=== PATIENT | female | born 1990 | race Caucasian/White ===

== ENCOUNTER 2020-06-23 18:51 | Observation (INO) | payer SELFPAY ==
[~2020-06-23] VITALS: Ht 175.3 cm; Wt 66.1 kg
[2020-06-23 19:16] LABS: BASOPHILS ABSOLUTE AUTO 0.04 K/mm3 (0.00-0.23); BASOPHILS PERCENT AUTO 0 % (0-2); EOSINOPHILS ABSOLUTE AUTO 0.11 K/mm3 (0.00-0.68); EOSINOPHILS PERCENT AUTO 1 % (0-6); Hematocrit 39.7 % (33.0-51.0); Hemoglobin 13.5 g/dL (11.5-16.0); IMMATURE GRAN ABSOLUTE AUTO 0.03 K/mm3 (0.00-0.10); IMMATURE GRAN PERCENT AUTO 0 % (0-1); LYMPHOCYTES ABSOLUTE AUTO 2.42 K/mm3 (0.84-5.20); LYMPHOCYTES PERCENT AUTO 26 % (21-46); MONOCYTES ABSOLUTE AUTO 0.93 K/mm3 (0.16-1.47); MONOCYTES PERCENT AUTO 10 % (4-13); Mean Corpuscular HGB 29.7 pg (26.0-34.0); Mean Corpuscular Volume 87 fL (80-100); Mean Platelet Volume 9.7 fL (9.1-12.4); NEUTROPHILS ABSOLUTE AUTO 5.73 K/mm3 (1.96-9.15); NEUTROPHILS PERCENT AUTO 62 % (41-73); Platelet Count 374 K/mm3 (150-400); RDW Coefficient Variation 12.3 % (11.7-14.2); RDW Standard Deviation 39.4 fL (35.1-46.3); Red Blood Cell Count 4.54 M/mm3 (3.80-5.20); White Blood Cell Count 9.26 K/mm3 (4.00-11.30)
[2020-06-23 19:33] LABS: Alanine Aminotransfer (ALT/SGP 12 U/L (12-78); Albumin, Blood 3.5 g/dL (3.4-5.0); Albumin/Globulin Ratio 0.9 (0.8-1.8); Alk Phos 43 U/L (50-136); Anion Gap 8 mmol/L (6-16); Aspartate Aminotrans (AST/SGOT 11 U/L (12-37); Bilirubin, Total 0.5 mg/dL (0.1-1.0); Blood Urea Nitrogen 10 mg/dL (8-24); Bun/Creatinine Ratio 13.1 (12.0-20.0); CO2, Blood 23 mmol/L (21-32); Calcium, Blood 8.7 mg/dL (8.5-10.1); Chloride, Blood 107 mmol/L (98-108); Creatinine, Blood 0.77 mg/dL (0.40-1.00); Glomerular Filtration Rate >60 (60-); Glucose, Blood 90 mg/dL (70-99); Potassium, Blood 3.8 mmol/L (3.5-5.5); Sodium, Blood 138 mmol/L (136-145); Total Protein, Blood 7.5 g/dL (6.4-8.2)
[2020-06-23 19:51] LABS: Source, Urine Clean Catch
[2020-06-23 20:13] LABS: Appearance, Urine Hazy (Clear); Bilirubin, Urine Neg (Neg); Blood, Urine 1+ (Neg); Color, Urine Yellow (P-Yellow); Glucose Qualitative, Urine Neg (Neg); Ketones, Urine 1+ (Neg); Leukocyte Esterase, Urine 1+ (Neg); Nitrite, Urine Neg (Neg); Protein, Urine 3+ (Neg); Urobilinogen, Urine NORM (Normal)
[2020-06-23 20:16] LABS: Amorphous Light (0-Heavy); Bacteria Mod /hpf; Mucus Light (0-Heavy); Red Blood Cells, Urine 0-2 /hpf (0-2); Squamous Epithelial Cells Few /hpf (Few); White Blood Cells, Urine 25-50 /hpf (0-5)
[2020-06-23 23:08] LABS: Influenza A, PCR Negative (NEGATIVE); Influenza B, PCR Negative (NEGATIVE); Resp Syncytial Virus, PCR Negative (NEGATIVE); SARS-Cov-2 (COVID-19) PCR, MMC Negative (NEGATIVE)
--- NOTE | 2020-06-24 00:06 | NUR ---
ARRIVAL TO UNIT PT ARRIVED TO UNIT AT APPROX 2330 PT CURRENTLY REPORTS PAIN OF 3/10 AND STATES TOLERABLE, DENIES NAUSEA. RESTING IN BED, PT AWARE OF NPO STATUS FOR PLANNED PROCEDURE 06/24. IV FLUIDS INFUSING. CALL LIGHT IN REACH. EDUCATED ON USE.
--- NOTE | 2020-06-24 06:38 | NUR ---
SHIFT SUMMARY NO ACUTE CHANGES SINCE ARRIVAL TO FLOOR, PT DENIES NAUSEA AND REPORTS PAIN TOLERABLE AT 3/10. SLEEPING IN BED DURING NIGHT IVF INFUSING AND ABX GIVEN PER EMAR. PLAN IS TO BE NPO AFTER 10AM PER ORDERS FOR POSSIBLE PROCEDURE TODAY.
--- NOTE | 2020-06-24 18:58 | NUR ---
SHIFT SUMMARY: POD 0 APPENDECTOMY PATIENT CAME BACK FROM PACU AT 1530 TODAY. SHE IS ALERT AND ORIENTED X4. VS ARE WNL AND ON RA. PAIN IS MANAGED WITH IV NARCOTICS. SHE IS TOLERATING CRACKERS AND PO FLUIDS. SHE IS RECIEVING IV FLUIDS AND ABX. SHE HAS 3 STERI STRIPS ON HER ABD THAT ARE C/D/I. SHE REPORTS NO NAUSEA AT THIS TIME. SHE IS A PLEASANT PATIENT TO WORK WITH. CALL LIGHT WITHIN REACH. THE PLAN IS TO HAVE ABX AND HAVE PAIN MANAGED. WILL MOST LIKELY BE DISCHARGED TOMORROW.
--- NOTE | 2020-06-24 19:51 | NUR ---
PT ARRIVED BACK FROM PACU AT APPROXIMATELY 1500. REPORT WAS GIVEN TO MÓNICA WORLEY AND SHE ASSUMED CARE OF PT.
--- NOTE | 2020-06-25 04:36 | NUR ---
SHIFT SUMMARY POD#1 LAP APPI. AAOX4. DISCOMFORT CONTROLLED WITH X1 PAIN PILL. NO NAUSEA/EMESIS. ABD INCISIONS C/D/I. UP AMBULATING IN HALLS SBA. IVF + ABX PER ORDERS. GOOD PO INTAKE + OUTPUT. PT RESTED WELL T/O NIGHT. CURRENTLY RESTING IN BED WITH CALL LIGHT IN REACH.
[2020-06-25] MEDS ORDERED: LORCET 5-325 M1 EACH PO (11:09)
--- NOTE | 2020-06-25 13:37 | NUR ---
DISCHARGE SUMMARY PT A&OX4, VSS, LEFT FLOOR VIA WC WITH RN, TO GO HOME WITH ALL PERSONAL POSSESSIONS INCLUDING 1 NARC SCRIPT. DC INSTRUCTIONS PROVIDED. PT REP UNDERSTANDING THOSE INSTRUCTIONS INCLUDING LEAVE STERIS IN PLACE UNTIL FU APPT WITH SURGEON IN 2 WKS, OK TO SHOWER, NO TUB/JACUZZI, SPLINTING W/COUGH/LAUGH/SNEEZE, NO LIFTING >15 LBS, NO PUSHING/PULLING. IV DC'D.
== END 2020-06-25 13:31 | disposition home or self-care (01) ==
LOC: ER 18:51 → SURS 18:53 → ER 23:11 → SURS 23:11
PROVIDERS: Emergency Medicine; Physician Assistant; ADMIT Surgery
DX: K35.80 Unspecified acute appendicitis (principal); Z20.828 Contact with and (suspected) exposure to other viral communicable diseases; Z23 Encounter for immunization
CPT/HCPCS: 0241U; 74176; 76857; 80053; 81001; 81025; 83690; 85025; 87086; 96365; 96366; 96376; 99285-25; A9270-GY; G0008; G0378; J0295; J1100; J1170; J2250; J2405; J2704; J3010; J7030; J7120; Q2038

== ENCOUNTER → 2021-03-30 | Outpatient (CLI) | payer SELFPAY ==
[~2021-03-30] MED LIST: LORCET 5-325 M1 EACH PO
[2021-04-06 06:10] LABS: CHLAMYDIA BY NAA Negative (Negative); GONOCOCCUS BY NAA Negative (Negative); HPV APTIMA Positive (Negative); HPV GENOTYPE 16 Negative (Negative); TRICH VAG BY NAA Negative (Negative)
== END | disposition home or self-care (01) ==
LOC: LAB SHORT 11:44
PROVIDERS: Family Medicine
DX: Z01.419 Encounter for gynecological examination (general) (routine) without abnormal findings (principal); Z11.3 Encounter for screening for infections with a predominantly sexual mode of transmission
CPT/HCPCS: 87491; 87591; 87624; 87625; 87661; G0123